=== PATIENT | female | born 1965 | race African-American/Black ===

== ENCOUNTER 2019-01-23 10:33 | Emergency (ER) | payer OTHER ==
[2019-01-23 10:45] VITALS: TEMP 98.4; BMI 35.4
[2019-01-23 12:39] LABS: ALK PHOS 86 U/L (45-117); ANION GAP 8 MMOL/L (8-16); BILIRUBIN,TOTAL 0.6 mg/dL (0.2-1); BLOOD UREA NITROGEN 18 mg/dL (7-18); CALCIUM 9.3 mg/dL (8.5-10.1); CHLORIDE 108 mmol/L (98-107); CO2 25 mmol/L (21-32); CREATININE 1.1 mg/dL (0.55-1.3); GLUCOSE,RANDOM 112 mg/dL (74-106); POTASSIUM 4.1 mmol/L (3.5-5.1); SGOT/AST 11 U/L (15-37); SGPT/ALT 14 U/L (13-61); SODIUM 142 mmol/L (136-145); TOT PROT 7.5 g/dl (6.4-8.2)
[2019-01-23 12:45] LABS: HEMATOCRIT 37.1 % (32.4-45.2); HEMOGLOBIN 12.2 GM/dL (10.7-15.3); LYMPH % 31.6 % (8-40); MCH 30.2 pg (25.7-33.7); MEAN CELL VOLUME 91.6 fl (80-96); MEAN PLT VOLUME 8.2 fl (7.5-11.1); MONO % 6.1 % (3.8-10.2); NEUT % 57.3 % (42.8-82.8); PLATELET COUNT 350 K/MM3 (134-434); RBC 4.05 M/mm3 (3.60-5.2); RDW 14.4 % (11.6-15.6)
--- NOTE | 2019-01-23 13:01 | PDOC ---
Documentation entered by Orville Steele SCRIBE, acting as scribe for En Velazquez MD. En Velazquez MD: This documentation has been prepared by the Ivette oropeza Nirvannie, SCRIBE, under my direction and personally reviewed by me in its entirety. I confirm that the documentation accurately reflects all work, treatment, procedures, and medical decision making performed by me. Attending Attestation - Resident Resident Name: ShelbylorrieLev - ED Attending Attestation I have performed the following: I have examined & evaluated the patient, The case was reviewed & discussed with the resident, I agree w/resident's findings & plan, Exceptions are as noted - HPI HPI: 01/23/19 12:46 The patient is a 53 year old female, with a significant past medical history of HTN, who presents to the emergency department with, 2 days of pain to the left arm. Pt states that she awoke yesterday with a pain in her shoulder radiating down her L arm. She thought initially that she slept on it wrong. However, the pain did not go away. Pt states that the pain persisted through today and transiently radiated into her chest, which concerned her. She denies any chest pain currently, and she states that since coming to the ER, the arm pain has resolved as well. Pt currently denies any complaints. She denies recent palpitations or shortness of breath. She denies recent fevers , chills, headache or dizziness. She denies recent nausea, vomit, diarrhea or constipation. She denies recent dysuria, frequency, urgency or hematuria. Allergies: NKDA Primary Care Physician: Dr. Larson - Physicial Exam PE: 01/23/19 12:46 GENERAL: Awake, alert, and fully oriented, in no acute distress. HEAD: No signs of trauma EYES: PERRLA, EOMI, sclera anicteric, conjunctiva clear ENT: Auricles normal inspection, hearing grossly normal, nares patent, oropharynx clear without exudates. Moist mucosa NECK: Nontender, no stepoffs, Normal ROM, supple, no lymphadenopathy, JVD, or masses LUNGS: Breath sounds equal, clear to auscultation bilaterally. No wheezes, and no crackles HEART: Regular rate and rhythm, normal S1 and S2, no murmurs, rubs or gallops ABDOMEN: Soft, nontender, normoactive bowel sounds. No guarding, no rebound. No masses EXTREMITIES: Normal range of motion, no edema. No clubbing or cyanosis. No cords, erythema, or tenderness NEUROLOGICAL: Cranial nerves II through XII intact. 5/5 strength and sensation in all extremities, Normal speech, normal gait, normal cerebellar function SKIN: Warm, Dry, normal turgor, no rashes or lesions noted. - Medical Decision Making 01/23/19 12:59 53 F with L arm pain and transient L chest pain. Will r/o ACS with serial trops and EKGs. Pt with normal neuro exam, no evidence of CVA. 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 Old EKG with similar T wave inversions Pending repeat trop and EKG 01/23/19 15:52 trop negative x2 Repeat EKG unchanged Pt reassessed - continues to be asymptomatic. Pt is well appearing, with normal vitals. Clinically stable for DC at this time. I discussed the physical exam findings, ancillary test results and final diagnoses with the patient. I answered all of the patient's questions. The patient was satisfied with the care received and felt comfortable with the discharge plan and treatment plan. The patient agrees to follow up with the primary care physician within 24-72 hours.
--- NOTE | 2019-01-23 14:02 | PDOC ---
History of Present Illness <En Velazquez - Last Filed: 01/23/19 15:04> - General History Source: Patient Exam Limitations: No Limitations - History of Present Illness Initial Comments: 01/23/19 14:01 53 yo female pmh of HTN, anxiety and panic attacks presents to the ED with 2 days of altered left arm sensation. Pt states around 4 pm at work she note a strange feeling of numbness from her left shoulder into her arm. Admits to sleeping wrong and new CP that began while in the ED. Also states she had a similar episode beofre, cardiac work up negative and was diagnosed as likely anxiety. Denies trauma, GRIFFITH, LOC, changes in vision, N/V/F/C, weakness in the left arm or leg. CP is non exertional, non radiating described as sharp. <Lev Wylie - Last Filed: 01/23/19 15:58> - General Chief Complaint: CVA/TIA Stated Complaint: NUMBNESS Time Seen by Provider: 01/23/19 11:34 Past History <En Velazquez - Last Filed: 01/23/19 15:04> - Past Medical History COPD: No Diabetes: Yes HTN: Yes - Surgical History Cholecystectomy: No - Immunization History Immunization Up to Date: No - Suicide/Smoking/Psychosocial Hx Smoking History: Current every day smoker Number of Cigarettes Smoked Daily: 5 Information on smoking cessation initiated: No Hx Alcohol Use: Yes Drug/Substance Use Hx: No Substance Use Type: None <Lev Wylie - Last Filed: 01/23/19 15:58> - Past Medical History Allergies/Adverse Reactions: Allergies Allergy/AdvReac Type Severity Reaction Status Date / Time No Known Allergies Allergy Verified 03/09/16 22:19 Home Medications: Ambulatory Orders Amlodipine/Valsartan/Hcthiazid [Ejskd-Cpymz-Ahvd 5-160-12.5 mg] 5 mg PO DAILY *Physical Exam - Vital Signs Last Vital Signs Temp Pulse Resp BP Pulse Ox 98.4 F 84 16 132/90 100 01/23/19 10:42 01/23/19 10:42 01/23/19 10:42 01/23/19 10:42 01/23/19 10:42 <En Velazquez - Last Filed: 01/23/19 15:04> - Vital Signs Last Vital Signs Temp Pulse Resp BP Pulse Ox 98.4 F 84 16 132/90 100 01/23/19 10:42 01/23/19 10:42 01/23/19 10:42 01/23/19 10:42 01/23/19 10:42 <Lev Wylie - Last Filed: 01/23/19 15:58> ED Treatment Course - LABORATORY CBC & Chemistry Diagram: 01/23/19 12:04 01/23/19 12:04 - ADDITIONAL ORDERS Additional order review: Laboratory Results 01/23/19 12:04 Sodium 142 Potassium 4.1 Chloride 108 H Carbon Dioxide 25 Anion Gap 8 BUN 18 Creatinine 1.1 Est GFR (CKD-EPI)AfAm 65.45 Est GFR (CKD-EPI)NonAf 56.47 Random Glucose 112 H Calcium 9.3 Total Bilirubin 0.6 AST 11 L ALT 14 Alkaline Phosphatase 86 Creatine Kinase 126 Troponin I < 0.02 Total Protein 7.5 Albumin 4.0 01/23/19 12:04 RBC 4.05 MCV 91.6 MCHC 33.0 RDW 14.4 MPV 8.2 Neutrophils % 57.3 D Lymphocytes % 31.6 D Monocytes % 6.1 Eosinophils % 4.0 Basophils % 1.0 <En Velazquez - Last Filed: 01/23/19 15:04> - LABORATORY CBC & Chemistry Diagram: 01/23/19 12:04 01/23/19 12:04 - ADDITIONAL ORDERS Additional order review: Laboratory Results 01/23/19 12:04 Sodium 142 Potassium 4.1 Chloride 108 H Carbon Dioxide 25 Anion Gap 8 BUN 18 Creatinine 1.1 Est GFR (CKD-EPI)AfAm 65.45 Est GFR (CKD-EPI)NonAf 56.47 Random Glucose 112 H Calcium 9.3 Total Bilirubin 0.6 AST 11 L ALT 14 Alkaline Phosphatase 86 Creatine Kinase 126 Troponin I < 0.02 Total Protein 7.5 Albumin 4.0 01/23/19 12:04 RBC 4.05 MCV 91.6 MCHC 33.0 RDW 14.4 MPV 8.2 Neutrophils % 57.3 D Lymphocytes % 31.6 D Monocytes % 6.1 Eosinophils % 4.0 Basophils % 1.0 <Lev Wylie - Last Filed: 01/23/19 15:58> Medical Decision Making - Medical Decision Making 01/23/19 15:52 2 trops negative, CP resolved without treatment pt resting comf without complaints 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 Although your blood tests today were normal, this does not rule out all heart disease. 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 If you experience chest pain, shortness of breath, weakness or numbness in any extremity, or any other concerning symptoms, return to the ER immediately. Thank you - Post Discharge Activity Forms/Work/School Notes: Back to Work
--- NOTE | 2019-01-23 16:00 | EKG ---
Test Reason : Blood Pressure : / mmHG Vent. Rate : 059 BPM Atrial Rate : 059 BPM P-R Int : 154 ms QRS Dur : 088 ms QT Int : 454 ms P-R-T Axes : 032 -14 -49 degrees QTc Int : 449 ms SINUS BRADYCARDIA VOLTAGE CRITERIA FOR LEFT VENTRICULAR HYPERTROPHY ABNORMAL ECG NO PREVIOUS ECGS AVAILABLE Confirmed by CHANDRAKANT PINEDA MD ([id number]) on 01/23/2019 4:00:15 PM Referred By: Confirmed By:CHANDRAKANT PINEDA MD
[2019-01-23 16:06] VITALS: BP 131/99; PULSE 75
--- NOTE | 2019-01-24 14:46 | EKG ---
Test Reason : Blood Pressure : / mmHG Vent. Rate : 059 BPM Atrial Rate : 059 BPM P-R Int : 158 ms QRS Dur : 088 ms QT Int : 442 ms P-R-T Axes : 034 -15 -29 degrees QTc Int : 437 ms SINUS BRADYCARDIA VOLTAGE CRITERIA FOR LEFT VENTRICULAR HYPERTROPHY T WAVE ABNORMALITY, CONSIDER INFERIOR ISCHEMIA T WAVE ABNORMALITY, CONSIDER ANTEROLATERAL ISCHEMIA ABNORMAL ECG WHEN COMPARED WITH ECG OF 23-JAN-2019 12:29, NO SIGNIFICANT CHANGE WAS FOUND Confirmed by FANNIE MARKS MD ([id number]) on 01/24/2019 2:46:21 PM Referred By: Confirmed By:FANNIE MARKS MD
== END 2019-01-23 16:06 | disposition home or self-care (01) ==
LOC: JER 10:33
DX: R20.0 Anesthesia of skin (principal); R07.9 Chest pain, unspecified; I10 Essential (primary) hypertension; E11.9 Type 2 diabetes mellitus without complications
CPT/HCPCS: 36415; 71045-TC-FY; 80053; 82550; 84484; 85025; 93005; 93010; 99283-25

== ENCOUNTER 2021-05-19 04:39 | Day surgery (SDC) | payer OTHER ==
[2021-05-18 14:29] VITALS: BMI 33.3
[2021-05-19 10:43] VITALS: TEMP 96.9
[2021-05-19 11:26] VITALS: BP 153/97; PULSE 52
== END 2021-05-19 11:50 | disposition home or self-care (01) ==
LOC: JASU-ENDO 04:39
PROVIDERS: ATTEND Internal Medicine Gastroenterology
PROC: 0DB38ZX Excision of Lower Esophagus, Via Natural or Artificial Opening Endoscopic, Diagnostic (ICD-10-PCS; 2021-05-19)
PROC: 0DB78ZX Excision of Stomach, Pylorus, Via Natural or Artificial Opening Endoscopic, Diagnostic (ICD-10-PCS; 2021-05-19)
PROC: 0DBN8ZX Excision of Sigmoid Colon, Via Natural or Artificial Opening Endoscopic, Diagnostic (ICD-10-PCS; principal; 2021-05-19 09:15)
DX: K21.00 Gastro-esophageal reflux disease with esophagitis, without bleeding (principal); K63.5 Polyp of colon; K64.8 Other hemorrhoids; R10.84 Generalized abdominal pain

== ENCOUNTER 2021-11-25 12:01 | Emergency (ER) | payer OTHER ==
[2021-11-25 12:26] VITALS: BP 158/99; PULSE 60; TEMP 98.7; BMI 33.6
[2021-11-25] MEDS ORDERED: KETOROLAC TROMETHAMINE 60 MG/2 ML VIAL IM ONE (12:54)
[2021-11-25] MEDS ORDERED: METHOCARBAMOL 500 MG TABLET PO ONE (12:55)
[2021-11-25] MEDS ORDERED: METHOCARBAMOL 500 MG TABLET ONE (12:56)
[2021-11-25] MEDS ORDERED: KETOROLAC TROMETHAMINE 30 MG/1 ML VIAL ONE (12:56)
== END 2021-11-25 14:56 | disposition home or self-care (01) ==
LOC: JERFT 12:01
PROC: 3E0233Z Introduction of Anti-inflammatory into Muscle, Percutaneous Approach (ICD-10-PCS; principal; 2021-11-25)
DX: M25.561 Pain in right knee (principal); W01.0XXA Fall on same level from slipping, tripping and stumbling without subsequent striking against object, initial encounter
CPT/HCPCS: 72100-TC-FY; 73562-TC-RT-FY; 73590-TC-RT-FY; 99285-25